=== PATIENT | male | born 1975 | race Caucasian/White ===

== ENCOUNTER 2019-02-01 07:38 | Emergency (ER) | payer BC, OTHER ==
[2019-02-01 07:50] VITALS: BP 125/95
--- NOTE | 2019-02-01 08:04 | EDM.PDOC ---
ED HPI GENERAL MEDICAL PROBLEM - General Chief Complaint: Lower Extremity Injury/Pain Stated Complaint: R HIP AND KNEE PAIN Time Seen by Provider: 02/01/19 08:05 Source of Information: Reports: Patient, RN Notes Reviewed - History of Present Illness INITIAL COMMENTS - FREE TEXT/NARRATIVE: 43-year-old male with onset of right knee pain 2 days ago. The pain continues to be quite severe today more severe with weightbearing. States she has had multiple episodes of gout involving the right knee in the past and this feels very similar. He also has had at least one episode of gout all being the great toe of one of his feet. His have history of peripheral neuropathy, is on gabapentin for that. He has not been taking any other medication for the knee pain, not sure what is safe. There is been no redness. He is not aware of any particular injury. There has been no fever. Right Knee Pain Score (Numeric/FACES): 8 - Related Data Allergies Allergy/AdvReac Type Severity Reaction Status Date / Time No Known Allergies Allergy Verified 02/01/19 07:50 Home Meds: Home Meds Allopurinol [Zyloprim] 300 mg PO DAILY 12/05/13 [History] FLUoxetine HCl [Fluoxetine HCl] 20 mg PO DAILY 02/14/15 [History] Meloxicam 15 mg PO DAILY PRN 02/14/15 [History] Indomethacin [Indocin] 50 mg PO TID #20 cap 02/01/19 [Rx] predniSONE [Prednisone] 50 mg PO DAILY #7 tablet 02/01/19 [Rx] Past Medical History - Past Health History Medical/Surgical History: Denies Medical/Surgical History Musculoskeletal History: Reports: Other (See Below) Other Musculoskeletal History: neuropathy - Past Surgical History Other Musculoskeletal Surgeries/Procedures:: elbow surgery Social & Family History - Tobacco Use Smoking Status *Q: Never Smoker - Caffeine Use Caffeine Use: Reports: Soda - Recreational Drug Use Recreational Drug Use: No Review of Systems - Review of Systems Review Of Systems: See Below Constitutional: Denies: Fever Eyes: Reports: No Symptoms Mouth/Throat: Reports: No Symptoms Respiratory: Denies: Shortness of Breath Cardiovascular: Denies: Chest Pain GI/Abdominal: Denies: Abdominal Pain Musculoskeletal: Reports: Joint Pain (Right knee) Skin: Denies: Rash, Erythema Neurological: Reports: Numbness (Chronic distal feet) ED EXAM, GENERAL - Physical Exam Exam: See Below General Appearance: Alert, No Apparent Distress Head: Atraumatic. No: Facial Swelling Neck: Supple Respiratory/Chest: No Respiratory Distress, Lungs Clear Cardiovascular: Regular Rate, Rhythm Extremities: Joint Swelling (There is mild swelling of the L knee, no visible effusion, mild tenderness medial knee, knee otherwise nontender, not warm or erythematous, mild pain with motion, joint stable), Other (posterior leg nontender, not swollen, warm or ertthematous) Course - Vital Signs Last Recorded V/S: Last Vital Signs Temp 98.7 F 02/01/19 07:47 Pulse 91 02/01/19 07:47 Resp 16 02/01/19 07:47 BP 125/95 H 02/01/19 07:47 Pulse Ox 95 02/01/19 07:47 - Orders/Labs/Meds Meds: Medications Discontinued Medications Generic Name Dose Route Start Last Admin Trade Name Mary PRN Reason Stop Dose Admin Prednisone 80 mg 02/01/19 08:16 02/01/19 08:23 Prednisone PO 02/01/19 08:17 80 mg ONETIME ONE Administration Departure - Departure Time of Disposition: 08:25 Disposition: Home, Self-Care 01 Condition: Fair Clinical Impression: Gout Qualifiers: Gout site: knee Gout etiology: unspecified cause Chronicity: acute Laterality: right Qualified Code(s): M10.9 - Gout, unspecified - Discharge Information Prescriptions: Indomethacin [Indocin] 50 mg PO TID #20 cap predniSONE [Prednisone] 50 mg PO DAILY #7 tablet Instructions: Gout, [id number] Referrals: Adrianne Quintanilla MD [Primary Care Provider] - Forms: ED Department Discharge Additional Instructions: rest knee, indocin 50 mg 3 times daily with food. you may take tylenol 1000 mg in between doses of indocin for extra pain relier of 1/2 tablet percocet with 500 mg tylenol q 6 to 8 hr if needed for severe pain. Do not drive or work when taking percocet. Follow up with your regular medical provider in about 2 to 3 days if not much better as expected. Return to ED if symptoms worsening in any way.
[2019-02-01] MEDS ORDERED: predniSONE 20 MG Tab PO ONE (08:16)
== END 2019-02-01 08:50 | disposition home or self-care (01) ==
LOC: JD.ED 07:38
DX: M10.9 Gout, unspecified (principal); Z79.899 Other long term (current) drug therapy
CPT/HCPCS: 99283; A9270

== ENCOUNTER 2020-02-12 07:11 | Emergency (ER) | payer BC ==
[2020-02-12 07:27] VITALS: BP 151/112; PULSE 112
[2020-02-12] MEDS ORDERED: Ondansetron 4 MG/2 ML SDV IVPUSH ONE (07:43)
[2020-02-12] MEDS ORDERED: Sodium Chloride 0.9% 10 ML Syringe FLUSH PRN (07:43)
[2020-02-12] MEDS ORDERED: Ketorolac 30 MG/ML SDV IVPUSH ONE (07:44)
[2020-02-12] MEDS ORDERED: HYDROmorphone 1 MG/ML Syringe IVPUSH ONE (07:44)
[2020-02-12] MEDS ORDERED: Sodium Chloride 0.9% 1,000 ML IV SCH (07:45)
--- NOTE | 2020-02-12 07:59 | EDM.PDOC ---
ED HPI GENERAL MEDICAL PROBLEM - General Chief Complaint: Flank Pain Stated Complaint: FLANK PAIN/BACK PAIN Time Seen by Provider: 02/12/20 07:39 Source of Information: Reports: Patient History Limitations: Reports: No Limitations - History of Present Illness INITIAL COMMENTS - FREE TEXT/NARRATIVE: The patient presents with right flank pain that radiates into his groin. He say s this all started last night. He moved in bed and felt a pop in his back and then pain that radiated into his groin He has been trying to urinate a few times and only small amounts. He has a history of kidney stones and he says it feels similar. He did have a little nausea but no vomiting. He has no dysuria and no hematuria. He has no fever, cough, chest pain, or shortness of breath. He did have chills. He still has his gallbladder and appendix. Onset: Sudden Duration: Hour(s): Location: Reports: Abdomen, Back Quality: Reports: Sharp Severity: Severe Improves with: Reports: None Worsens with: Reports: None Associated Symptoms: Reports: Fever/Chills, Nausea/Vomiting. Denies: Chest Pain, Cough, Headaches, Shortness of Breath Right Flank Pain Score (Numeric/FACES): 7 - Related Data Allergies Allergy/AdvReac Type Severity Reaction Status Date / Time No Known Allergies Allergy Verified 02/12/20 07:26 Home Meds: Home Meds allopurinoL [Zyloprim] 300 mg PO DAILY 12/05/13 [History] FLUoxetine HCl [Fluoxetine HCl] 20 mg PO DAILY 02/14/15 [History] Meloxicam 15 mg PO DAILY PRN 02/14/15 [History] Indomethacin [Indocin] 50 mg PO TID #20 cap 02/01/19 [Rx] predniSONE [Prednisone] 50 mg PO DAILY #7 tablet 02/01/19 [Rx] Hydrocodone/Acetaminophen [Hydrocodone-Acetamin 5-325 mg] 1 - 2 each PO Q6HR PRN #20 tablet 02/12/20 [Rx] Tamsulosin HCl [Flomax] 0.4 mg PO DAILY #7 cap.er.24h 02/12/20 [Rx] Past Medical History - Past Health History Medical/Surgical History: Denies Medical/Surgical History Musculoskeletal History: Reports: Other (See Below) Other Musculoskeletal History: neuropathy - Past Surgical History Other Musculoskeletal Surgeries/Procedures:: elbow surgery Social & Family History - Caffeine Use Caffeine Use: Reports: Soda ED ROS GENERAL - Review of Systems Review Of Systems: See Below Constitutional: Reports: Chills. Denies: Fever HEENT: Reports: No Symptoms Respiratory: Reports: No Symptoms Cardiovascular: Reports: No Symptoms Endocrine: Reports: No Symptoms GI/Abdominal: Reports: Abdominal Pain, Nausea. Denies: Vomiting : Reports: Flank Pain (Right) Musculoskeletal: Reports: Back Pain ED EXAM, GI/ABD - Physical Exam Exam: See Below Exam Limited By: No Limitations General Appearance: Alert, No Apparent Distress Ears: Normal External Exam Nose: Normal Inspection Head: Atraumatic, Normocephalic Neck: Normal Inspection Respiratory/Chest: No Respiratory Distress, Lungs Clear, Normal Breath Sounds Cardiovascular: Regular Rate, Rhythm, No Edema, No Murmur GI/Abdominal Exam: Soft, No Organomegaly, No Mass, Tender (Mild tenderness to the RLQ) Back Exam: CVA Tenderness (R) Course - Vital Signs Last Recorded V/S: Last Vital Signs Temp 97.5 F 02/12/20 07:24 Pulse 112 H 02/12/20 07:24 Resp 16 02/12/20 07:24 BP 151/112 H 02/12/20 07:24 Pulse Ox 98 02/12/20 07:24 - Orders/Labs/Meds Orders: Active Orders 24 hr Category Date Time Status Peripheral IV Care [RC] . DIRECTED Care 02/12/20 07:44 Active Sodium Chloride 0.9% [Normal Saline] 1,000 ml Med 02/12/20 07:45 Active IV ASDIRECTED Sodium Chloride 0.9% [Saline Flush] Med 02/12/20 07:43 Active 10 ml FLUSH ASDIRECTED PRN ED Antiemetic Medication Reflex [OM.PC] Stat Oth 02/12/20 07:43 Ordered Peripheral IV Insertion Adult [OM.PC] Stat Oth 02/12/20 07:43 Ordered Medication Orders Sodium Chloride (Normal Saline) 1,000 mls @ 125 mls/hr IV ASDIRECTED REDD Last Admin: 02/12/20 07:58 Dose: 125 mls/hr Documented by: DONTAE Sodium Chloride (Saline Flush) 10 ml FLUSH ASDIRECTED PRN PRN Reason: Keep Vein Open Last Admin: 02/12/20 07:59 Dose: 10 ml Documented by: DONTAE Labs: Laboratory Tests 02/12/20 02/12/20 02/12/20 Range/Units 07:30 07:53 07:53 WBC 12.72 H (4.23-9.07) K/mm3 RBC 5.64 (4.63-6.08) M/mm3 Hgb 16.6 (13.7-17.5) gm/dl Hct 50.0 (40.1-51.0) % MCV 88.7 (79.0-92.2) fl MCH 29.4 (25.7-32.2) pg MCHC 33.2 (32.2-35.5) g/dl RDW Std Deviation 44.4 H (35.1-43.9) fL Plt Count 349 H D (163-337) K/mm3 MPV 9.4 (9.4-12.3) fl Neut % (Auto) 82.6 H (34.0-67.9) % Lymph % (Auto) 11.9 L (21.8-53.1) % [place] % (Auto) 4.9 L (5.3-12.2) % Eos % (Auto) 0.2 L (0.8-7.0) Baso % (Auto) 0.2 (0.1-1.2) % Neut # (Auto) 10.52 H (1.78-5.38) K/mm3 Lymph # (Auto) 1.51 (1.32-3.57) K/mm3 [place] # (Auto) 0.62 (0.30-0.82) K/mm3 Eos # (Auto) 0.02 L (0.04-0.54) K/mm3 Baso # (Auto) 0.03 (0.01-0.08) K/mm3 Sodium 140 (136-145) mEq/L Potassium 4.8 (3.5-5.1) mEq/L Chloride 105 (98-107) mEq/L Carbon Dioxide 27 (21-32) mEq/L Anion Gap 12.8 (5-15) BUN 14 (7-18) mg/dL Creatinine 1.4 H (0.7-1.3) mg/dL Est Cr Clr Drug Dosing 81.31 mL/min Estimated GFR (MDRD) 55 (>60) mL/min BUN/Creatinine Ratio 10.0 L (14-18) Glucose 122 H (74-106) mg/dL Calcium 9.2 (8.5-10.1) mg/dL Total Bilirubin 0.3 (0.2-1.0) mg/dL AST 20 (15-37) U/L ALT 46 (16-63) U/L Alkaline Phosphatase 48 (46-116) U/L Total Protein 7.9 (6.4-8.2) g/dl Albumin 4.1 (3.4-5.0) g/dl Globulin 3.8 gm/dL Albumin/Globulin Ratio 1.1 (1-2) Lipase 93 (73-393) U/L Urine Color Yellow (Yellow) Urine Appearance Clear (Clear) Urine pH 5.5 (5.0-8.0) Ur Specific [place] 1.025 (1.005-1.030) Urine Protein 1+ H (Negative) Urine Glucose (UA) Negative (Negative) Urine Ketones Negative (Negative) Urine Occult Blood Trace-lysed H (Negative) Urine Nitrite Negative (Negative) Urine Bilirubin Negative (Negative) Urine Urobilinogen 0.2 (0.2-1.0) Ur Leukocyte Esterase Negative (Negative) U Hyaline Cast (Auto) 0-5 (0-5) /lpf Urine RBC 0-5 (0-5) /hpf Urine WBC 0-5 (0-5) /hpf Ur Squamous Epith Cells 0-5 (0-5) /hpf Urine Bacteria Few (FEW) /hpf Urine Mucus Moderate H (FEW) /hpf Meds: Medications Generic Name Dose Route Start Last Admin Trade Name Mary PRN Reason Stop Dose Admin Sodium Chloride 1,000 mls @ 125 mls/hr 02/12/20 07:45 02/12/20 07:58 Normal Saline IV 125 mls/hr ASDIRECTED REDD Administration Sodium Chloride 10 ml 02/12/20 07:43 02/12/20 07:59 Saline Flush FLUSH 10 ml ASDIRECTED PRN Administration Keep Vein Open Discontinued Medications Generic Name Dose Route Start Last Admin Trade Name Mary PRN Reason Stop Dose Admin Hydromorphone HCl 1 mg 02/12/20 07:44 02/12/20 07:59 Dilaudid IVPUSH 02/12/20 07:45 1 mg ONETIME ONE Administration Ketorolac Tromethamine 30 mg 02/12/20 07:44 02/12/20 07:59 Toradol IVPUSH 02/12/20 07:45 30 mg ONETIME ONE Administration Ondansetron HCl 4 mg 02/12/20 07:43 02/12/20 07:59 Zofran IVPUSH 02/12/20 07:44 4 mg ONETIME ONE Administration - Re-Assessments/Exams Free Text/Narrative Re-Assessment/Exam: 02/12/20 08:00 I ordered an IV NS at 125mL/hr, zofran 4mg IV, toradol 30mg IV, dilaudid 1mg IV, labs, UA and a CT of his abdomen and pelvis without contrast to look for a kidney stone. 02/12/20 09:19 His WBC was elevated at 12.72. His creatinine was elevated at 1.4. His lipase is normal. His UA shows some blood but no UTI. His CT shows a 2mm obstructing stone within the distal right ureter at the UVJ. 2small nonobstructing calculi within the left kidney. Fatty infiltration within the liver. Calcified layering gallstones within the gallbladder. 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 He feels better. I will get him on flomax and hydrocodone for pain. Departure - Departure Time of Disposition: 09:25 Disposition: Home, Self-Care 01 Condition: Good Clinical Impression: Kidney stones, Ureteral calculus, right, Ureteral colic, Gallstones - Discharge Information *PRESCRIPTION DRUG MONITORING PROGRAM REVIEWED*: Not Applicable *COPY OF PRESCRIPTION DRUG MONITORING REPORT IN PATIENT ELIOT: Not Applicable Prescriptions: Tamsulosin HCl [Flomax] 0.4 mg PO DAILY #7 cap.er.24h Hydrocodone/Acetaminophen [Hydrocodone-Acetamin 5-325 mg] 1 - 2 each PO Q6HR PRN #20 tablet PRN Reason: Pain Referrals: Natalee-Adrianne Reyes MD [Primary Care Provider] - Jerson Skelton MD [Ordering Only Provider] - 1 Week Forms: ED Department Discharge Additional Instructions: Drink plenty of fluids. Take the flomax daily until you pass the stone. Take motrin or tylenol for pain. If that does not help, try the hydrocodone. You should pass this stone on your own if you do not in a week follow up with Dr Skelton. You have gallstones if you get pain in your right upper abdomen follow up with your doctor for a referral to a surgeon. Please return if you are worse. Sepsis Event Note (ED) - Evaluation Sepsis Screening Result: No Definite Risk - Focused Exam Vital Signs: Vital Signs Temp Pulse Resp BP Pulse Ox 02/12/20 07:24 97.5 F 112 H 16 151/112 H 98 - My Orders Last 24 Hours: My Active Orders 02/12/20 07:43 Sodium Chloride 0.9% [Saline Flush] 10 ml FLUSH ASDIRECTED PRN ED Antiemetic Medication Reflex [OM.PC] Stat Peripheral IV Insertion Adult [OM.PC] Stat 02/12/20 07:44 Peripheral IV Care [RC] . DIRECTED 02/12/20 07:45 Sodium Chloride 0.9% [Normal Saline] 1,000 ml IV ASDIRECTED - Assessment/Plan Last 24 Hours: My Active Orders 02/12/20 07:43 Sodium Chloride 0.9% [Saline Flush] 10 ml FLUSH ASDIRECTED PRN ED Antiemetic Medication Reflex [OM.PC] Stat Peripheral IV Insertion Adult [OM.PC] Stat 02/12/20 07:44 Peripheral IV Care [RC] . DIRECTED 02/12/20 07:45 Sodium Chloride 0.9% [Normal Saline] 1,000 ml IV ASDIRECTED
--- NOTE | 2020-02-12 09:06 | CT ---
CT abdomen and pelvis Technique: Multiple axial sections were obtained from above the dome of the diaphragm inferiorly through the pubic symphysis. Intravenous and oral contrast not utilized. Study has been performed as a ureteral stone protocol. Findings: Right ureter is dilated down to the bladder. This finding is caused by a 2 mm obstructing stone located at the UVJ. No other abnormal calcifications are seen along the course of the ureters. Right kidney shows no abnormal calcifications. Left kidney shows 2 small nonobstructing calculi measuring 4.9 mm and 2.0 mm. Other findings: Visualized lung bases show nothing acute. Liver shows diffuse fatty infiltration. Liver shows no additional abnormality. Layering gallstones are seen within the gallbladder. Spleen appears within normal limits. Adrenal glands show no nodule. Pancreas is within normal limits. Aorta shows no aneurysm. Appendix is seen which is normal. No pelvic mass or adenopathy is seen. Small fat-containing left-sided inguinal hernia is noted. Bone window settings were reviewed which shows mild spondylolisthesis at L5-S1 due to bilateral spondylolytic the facts. Disc space narrowing and vacuum phenomenon also noted at L5-S1. Fat-containing umbilical hernia is noted. Impression: 1. 2 mm obstructing stone within the distal right ureter at the UVJ. 2. 2 small nonobstructing calculi within the left kidney as noted above. 3. Fatty infiltration within the liver. Calcified layering gallstones within the gallbladder. 4. 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 Diagnostic code #3 This report was dictated in MDT
== END 2020-02-12 09:44 | disposition home or self-care (01) ==
LOC: JD.ED 07:11
DX: N20.2 Calculus of kidney with calculus of ureter (principal); K80.20 Calculus of gallbladder without cholecystitis without obstruction; Z79.899 Other long term (current) drug therapy
CPT/HCPCS: 36415; 74176; 80053; 81001; 83690; 85025; 96374; 96375; 99284; J1170; J1885; J2405; J7030

== ENCOUNTER 2021-09-12 11:09 | Emergency (ER) | payer BC ==
[2021-09-12] MEDS ORDERED: Sodium Chloride 0.9% 10 ML Syringe FLUSH PRN (11:33)
[2021-09-12] MEDS ORDERED: Ondansetron 4 MG/2 ML SDV IVPUSH ONE (11:43)
[2021-09-12] MEDS ORDERED: HYDROmorphone 0.5 MG/0.5 ML Syringe IVPUSH ONE (11:43)
[2021-09-12] MEDS ORDERED: Sodium Chloride 0.9% 1,000 ML IV STA (11:43)
[2021-09-12] MEDS ORDERED: Ketorolac 30 MG/ML SDV IVPUSH ONE (13:12)
[2021-09-12] MEDS ORDERED: Tamsulosin 0.4 MG Cap.ER PO ONE (13:14)
[2021-09-12 14:42] VITALS: BP 157/86; PULSE 88
== END 2021-09-12 14:41 | disposition home or self-care (01) ==
LOC: JD.ED 11:09
DX: N13.2 Hydronephrosis with renal and ureteral calculous obstruction (principal); Z91.018 Allergy to other foods; Z79.899 Other long term (current) drug therapy; Z72.0 Tobacco use
CPT/HCPCS: 36415; 74176; 80053; 81001; 85025; 86140; 96374; 96375; 99284; A9270; J1170; J1885; J2405; J7030

== ENCOUNTER 2021-09-24 06:24 | Emergency (ER) | payer BC ==
[2021-09-24 06:37] VITALS: BP 179/133; PULSE 100
[2021-09-24] MEDS ORDERED: fentaNYL 100 MCG/2 ML SDV IVPUSH ONE ×3 (07:10→10:53)
[2021-09-24] MEDS ORDERED: Ondansetron 4 MG/2 ML SDV IVPUSH ONE (07:10)
[2021-09-24] MEDS ORDERED: Lactated Ringers 1,000 ML IV SCH (07:15)
[2021-09-24] MEDS ORDERED: Tamsulosin 0.4 MG Cap.ER PO ONE (09:22)
== END 2021-09-24 11:00 ==
LOC: JD.ED 06:24
DX: N13.2 Hydronephrosis with renal and ureteral calculous obstruction (principal); Z91.018 Allergy to other foods; Z79.899 Other long term (current) drug therapy
CPT/HCPCS: 36415; 74176; 74176-26; 80053; 81001; 85025; 96374; 96375; 96376; 99285-25; A9270-GY; J2405; J3010; J7120